=== PATIENT | female | born 2000 | race Two or more races ===

== ENCOUNTER 2023-03-04 10:52 | Emergency (ER) | payer OTHER ==
[~2023-03-04] VITALS: Ht 157.5 cm; Wt 39.0 kg
== END 2023-03-04 14:10 | disposition home or self-care (01) ==
LOC: ER 10:52
DX: S00.93XA Contusion of unspecified part of head, initial encounter (principal); W19.XXXA Unspecified fall, initial encounter; Y93.89 Activity, other specified; Y92.89 Other specified places as the place of occurrence of the external cause; Y99.9 Unspecified external cause status